=== PATIENT | male | born 1975 | race Two or more races ===

== ENCOUNTER 2022-09-07 08:23 | Emergency (ER) | payer SELFPAY ==
--- NOTE | 2022-09-07 08:32 | NUR ---
PT REFUSED TO BE SEEN OR EVALUATED. PT LEFT WITHOUT BEING TRIAGED OR SEEN BY MD.
== END 2022-09-07 08:38 | disposition left against medical advice (07) ==
LOC: ER 08:30
DX: Z53.21 Procedure and treatment not carried out due to patient leaving prior to being seen by health care provider (principal)